=== PATIENT | female | born 1980 | race Caucasian/White ===

== ENCOUNTER 2018-10-17 21:07 | Emergency (ER) | payer OTHER ==
[~2018-10-17] VITALS: Ht 160 cm; Wt 73.9 kg
[2018-10-17 21:36] VITALS: Ht 160 cm; Wt 73.9 kg
[2018-10-17 22:36] LABS: BASOPHIL % 0.3 % (0-2); PLATELET COUNT 213 x10^3mcL (130-400); RED CELL DISTRIBUTION WIDTH 13.6 % (11.5-14.5)
[2018-10-17 22:44] LABS: CALCIUM 9.2 mg/dL (8.5-10.1); CARBON DIOXIDE 23.4 mmol/L (21-32); CHLORIDE SERUM 104 mmol/L (98-107); CREATININE SERUM 0.8 mg/dL (0.6-1.0); GFR1 > 60 mL/min; GLUCOSE SERUM 108 mg/dL (74-106); POTASSIUM SERUM 4.1 mmol/L (3.5-5.1); SODIUM SERUM 138 mmol/L (136-145)
[2018-10-17 22:50] LABS: ALBUMIN 3.5 g/dL (3.4-5.0); ALKALINE PHOSPHATASE 101 U/L (46-116); ALT/SGPT 21 U/L (14-59); AMYLASE 45 U/L (25-115); AST/SGOT 9 U/L (15-37); BILIRUBIN TOTAL 0.84 mg/dL (0.20-1.00); LIPASE 130 IU/L (73-393); TOTAL PROTEIN, SERUM 7.9 g/dL (6.4-8.2)
[2018-10-18 00:15] VITALS: BP 135/86
== END 2018-10-18 00:15 | disposition home or self-care (01) ==
LOC: ED 21:07
PROVIDERS: Specialist
DX: K80.50 Calculus of bile duct without cholangitis or cholecystitis without obstruction (principal)
CPT/HCPCS: 36415; J1885; J3010; Q0092; Q0162